=== PATIENT | male | born 1960 | race Caucasian/White ===

== ENCOUNTER 2017-02-22 12:31 | Day surgery (SDC) | payer BC ==
[2017-02-22] MEDS ORDERED: MIDAZOLAM HCL 2MG/2ML VIAL IV ONE (14:00)
[2017-02-22] MEDS ORDERED: PROPOFOL 10 MG/ML VIAL IV ONE (14:00)
[2017-02-22] MEDS ORDERED: LIDOCAINE 2% MDV (20MG/ML) 20ML VIAL IV ONE (14:00)
--- NOTE | 2017-02-27 09:49 | Operative Note ---
DATE OF SURGERY: 02/22/2017 OPERATION: COLONOSCOPY with cold forceps polypectomy x2. PREOPERATIVE DIAGNOSIS: Screening, initial, average risk. POSTOPERATIVE DIAGNOSES: 1. A few ascending colon diverticula. 2. Sigmoid colon polyps. ESTIMATED BLOOD LOSS: Minimal. SPECIMENS: Sigmoid colon polyps x2. COMPLICATIONS: None apparent. PREPARATION QUALITY: Good. PROCEDURE: After informed consent was obtained from the patient, he was placed in the left lateral decubitus position in the endoscopy suite, sedated and monitored by the department of anesthesia. Digital rectal exam was unremarkable. A well-lubricated [id number] colonoscope was inserted into the rectum and advanced to the cecum. Preparation quality was good. The cecum was unremarkable. The ascending colon revealed a few diverticula. The ileocecal valve and appendiceal orifice as well were once again inspected and were unremarkable. The remainder of the ascending colon, transverse colon, and descending colon were unremarkable. There were 2 diminutive sigmoid colon polyps each removed with a cold forceps. The remainder of the sigmoid colon was unremarkable. Forward and J-turn views of the rectum and anorectum were unremarkable. The endoscope was straightened, the rectal ampulla deflated, and the endoscope was removed. RECOMMENDATIONS: The patient should follow a high-fiber diet. He will require repeat exam in 5-10 years pending tissue histology. As always, thank you for allowing me to participate in the healthcare of your patients. CC: SOO WADSWORTH MD, FACP [facility]Jess
== END 2017-02-22 14:50 | disposition home or self-care (01) ==
LOC: HOP 12:31
PROVIDERS: ATTEND Internal Medicine Gastroenterology
DX: Z12.11 Encounter for screening for malignant neoplasm of colon (principal); K63.5 Polyp of colon; K57.30 Diverticulosis of large intestine without perforation or abscess without bleeding

== ENCOUNTER 2019-01-27 07:27 | Emergency (ER) | payer BC ==
--- NOTE | 2019-01-27 07:44 | Emergency Department Record ---
History of Present Illness - General Chief Complaint: Fall Injury Stated Complaint: FALL/INJURY LT SIDE Time Seen by Provider: 01/27/19 07:37 Source: Patient Mode of Arrival: Ambulatory Limitations: No limitations - History of Present Illness Initial Comments: The patient is here due to L lower rib pain after rolling out of bed this AM and falling on the floor. Since the fall he has had L lower rib pain. There has been no SOB, ANGEL, Ap, or hematuria. The patient denies any head injury or neck pain. The patient does have an extensive smoking hx but just recently quit. Onset/Timin -: Hour(s) Fall From: Out of bed When Fall Occurred: 4-[address] Fall Occurred: Home Loss of Consciousness: None Prolonged Down Time?: No Symptoms Prior to Fall: None Location: Back - [place] Coma Scale Eye Response: (4) Open spontaneously Motor Response: (6) Obeys commands Verbal Response: (5) Oriented Rachele Total: 15 - Related Data Home Medications Medication Instructions Recorded Confirmed Last Taken Aspirin [Aspir-Low] 81 mg PO DAILY 01/27/19 01/27/19 01/27/19 Allergies Allergy/AdvReac Type Severity Reaction Status Date / Time No Known Drug Allergies Allergy Verified 01/27/19 07:39 Travel Screening - Travel/Exposure Within Last 30 Days Have you traveled within the last 30 days?: No - Travel/Exposure Within Last Year Have you traveled outside the [place] in the last year?: Yes Location Detail:: [place] - Additonal Travel Details Have you been exposed to anyone with a communicable illness?: No - Travel Symptoms Symptom Screening: None Review of Systems Constitutional: Denies: Chills, Fever Eyes: Denies: Eye discharge ENT: Denies: Congestion, Dental pain Respiratory: Denies: Cough, Dyspnea Past Medical History - SOCIAL HISTORY Smoking Status: Former smoker Alcohol Use: None Drug Use: Occasional Drug Use Detail:: Marijuana - RESPIRATORY Hx Respiratory Disorders: No - CARDIOVASCULAR Hx Cardio Disorders: Yes Hx Hypertension: Yes - NEURO Hx Neuro Disorders: No - GI Hx GI Disorders: No - Hx Genitourinary Disorders: No - ENDOCRINE Hx Endocrine Disorders: No - MUSCULOSKELETAL Hx Musculoskeletal Disorders: No - PSYCH Hx Psych Problems: No - HEMATOLOGY/ONCOLOGY Hx Hematology/Oncology Disorders: No Family Medical History Any Significant Family History?: No Physical Exam - General General Appearance: Alert, Oriented x3, Cooperative, No acute distress - Head Head exam: Atraumatic, Normocephalic, Normal inspection - Eye Eye exam: Normal appearance, PERRL - ENT Throat exam: Normal inspection. negative: Tonsillar erythema, Tonsillar exudate - Neck Neck exam: Normal inspection, Full ROM. negative: Tenderness - Respiratory Respiratory exam: Normal lung sounds bilaterally, Chest wall tenderness (There is tenderness to the L lower ribs laterally. There is no bruising, swelling, erythema, or crepitance on exam of the L lower ribs.) - Cardiovascular Cardiovascular Exam: Regular rate, Normal rhythm, Normal heart sounds - GI/Abdominal GI/Abdominal exam: Soft, Normal bowel sounds. negative: Rebound, Rigid, Tenderness (There is no LUQ tenderness.) - Extremities Extremities exam: Normal inspection, Full ROM, Normal capillary refill. negative: Tenderness Image of Full Body: 1 - Area of pain and tenderness. - Neurological Neurological exam: Alert, Normal gait. negative: Abnormal gait, Motor sensory deficit - Psychiatric Psychiatric exam: negative: Anxious Course Vital Signs 01/27/19 07:30 Temperature 98.1 F Pulse Rate 71 Respiratory 18 Rate Blood Pressure 146/83 Pulse Ox 98 - Reevaluation(s) Reevaluation #1: I did review the xrays with the patient and did relay that no rib fx was found. I also did discuss the incidental finding of the RUL mass and LLL nodule. Due to the high risk of malignancy I did discuss the case with Dr. Payne who assured me that he can see the patient this week and have him further evaluated with a CT scan. 01/27/19 08:32 Medical Decision Making - Data Complexity MDM Data: X-Ray Ordered and/or Reviewed - Radiology Data Radiology results: Report reviewed (L ribs: Neg for fx. CXR: 5.6 cm RUL mass with L lower lung nodule. Possible malignancy.) Disposition Disposition: Discharge Clinical Impression: Contusion of rib on left side Qualifiers: Encounter type: initial encounter Qualified Code(s): S20.212A - Contusion of left front wall of thorax, initial encounter Disposition: Home, Self-Care Condition: (2) Stable Instructions: Pulmonary Nodules (ED), Rib Contusion (ED) Additional Instructions: Please take Tylenol or Motrin for pain and please rest when possible with no lifting. Please see your Dr. Payne this week for further evaluation and to have a chest CT ordered. Return to the ER for any worsening symptoms. Forms: Patient Portal Access Time of Disposition: 08:31 Quality - Quality Measures Quality Measures: N/A - Blood Pressure Screening View Details: Yes Does Patient Have Any of the Following: No Blood Pressure Classification: Pre-Hypertensive BP Reading Systolic Measurement: 129 Diastolic Measurement: 80 Screening for High Blood Pressure: < Pre-Hypertensive BP, F/U Documented > [G8950] Pre-Hypertensive Follow-up Interventions: Referral to alternative/primary care provider.
--- NOTE | 2019-01-29 09:03 | RADIOLOGY REPORT ---
EXAM: CHEST, TWO VIEWS HISTORY: TRAUMA, LEFT RIB PAIN AFTER ROLLING OUT OF BED THIS MORNING AND LANDED ON BACK. TECHNIQUE: PA and lateral views of the chest were obtained. Comparison: None. Encounter: Initial. FINDINGS: The heart size is normal. No definite acute infiltrate is seen and no pleural effusion or pneumothorax evident, however, there does appear to be a mass like density in the right upper lobe measuring about 5.8 cm in maximum diameter and a nodule in the left lower lobe measuring about 1.6 cm in diameter. There may be a second small nodular overlying the heart as well approximately 1.3 cm. The possibility of metastatic disease, possibly primary malignancy in the right upper lobe is raised. Comparison with prior chest x-ray is suggested and follow-up nonemergent chest CT may be useful. There is a thoracic curve to the right. The lungs do appear hyperinflated suggesting underlying COPD. There is mild relative loss of vertebral height of numerous thoracic vertebra, approximately T6 through T11, presumably chronic and may even be developmental and again comparison with old films would be useful in this regard. IMPRESSION: 1. HYPERINFLATION SUGGESTING COPD. 2. PROBABLE 5.1 CM MASS RIGHT UPPER LOBE AND AT LEAST ONE IF NOT TWO NODULES IN THE LEFT BASE. MALIGNANCY NOT EXCLUDED. COMPARISON WITH PRIOR CHEST X-RAYS AND POSSIBLY FOLLOW-UP NONEMERGENT CHEST CT SUGGESTED. 3. THORACIC CURVE TO THE RIGHT WITH MILD VERTEBRAL BODY HEIGHT LOSS AND NUMEROUS THORACIC VERTEBRA ALL PRESUMABLY CHRONIC AND AGAIN COMPARISON WITH OLD FILMS WOULD BE USEFUL. JOB NUMBER: [id number] MTDD
--- NOTE | 2019-01-29 09:07 | RADIOLOGY REPORT ---
EXAM: LEFT RIBS HISTORY: PATIENT ROLLED OUT OF BED TODAY LANDING ON BACK WITH LEFT RIB PAIN. TECHNIQUE: AP and oblique views of the left ribs were obtained. Comparison: No prior left rib series. Encounter: Initial. FINDINGS: As noted on the chest x-ray today there appears to be a mass like density in the right upper lobe measuring about 5.7 cm. There is also an approximately 1.6 cm nodule in the left base. Follow-up as described in the chest x-ray report from today suggested for further evaluation of this. No definite left rib fracture identified. No pneumothorax or pleural effusion evident. IMPRESSION: 1. NO DEFINITE LEFT RIB FRACTURE IDENTIFIED. 2. APPARENT PULMONARY MASS RIGHT UPPER LOBE AND AT LEAST ONE NODULE IN THE LEFT BASE. RECOMMEND FOLLOW-UP SUGGESTED IN THE CHEST X-RAY REPORT FROM TODAY. JOB NUMBER: [id number] MTDD
== END 2019-01-27 08:36 | disposition home or self-care (01) ==
LOC: ER 07:27
DX: S20.211A Contusion of right front wall of thorax, initial encounter (principal); W17.89XA Other fall from one level to another, initial encounter; Y92.003 Bedroom of unspecified non-institutional (private) residence as the place of occurrence of the external cause; R91.1 Solitary pulmonary nodule; R91.8 Other nonspecific abnormal finding of lung field
CPT/HCPCS: 71046; 99283; 99284

== ENCOUNTER 2019-06-19 11:27 | Observation (INO) | payer BC ==
[2019-06-19] MEDS ORDERED: 0.9 % SODIUM CHLORIDE 1,000 ML BAG IV ONE ×2 (11:52→13:39)
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
[2019-06-19 12:14] LABS: HEMATOCRIT 37.7 % (42.0-52.0); HEMOGLOBIN 12.3 gm/dl (14.0-18.0); MEAN CELL VOLUME 95.7 fl (81-97); MEAN CORPUSCULAR HEMOGLOBIN 31.2 pg (27-33); MEAN CORPUSCULAR HGB CONC 32.6 g/dl (32-36); MEAN PLATELET VOLUME 9.8 fl (7.4-10.4); PLATELET COUNT 443 K/uL (130-400); RED BLOOD COUNT 3.94 M/uL (4.40-5.70); RED CELL DISTRIBUTION WIDTH 13.9 % (11.5-14.5); WHITE BLOOD COUNT W/O DIFF 14.2 K/uL (4.2-12.2)
[2019-06-19 12:27] LABS: PARTIAL THROMBOPLASTIN TIME 23.6 SECONDS (24.5-39.1); PROTHROMBIN TIME (PATIENT) 9.9 SECONDS (9.5-12.1)
[2019-06-19 12:42] LABS: BLOOD UREA NITROGEN 17 mg/dL (6-20); CREATININE 0.8 mg/dL (0.7-1.2); EST GLOMERULAR FILTRATION RATE > 60 mL/min
[2019-06-19 12:43] LABS: TOTAL PROTEIN 6.5 g/dL (6.6-8.7)
[2019-06-19 12:45] LABS: GLUCOSE,RANDOM 182 mg/dL (74-109)
[2019-06-19 12:48] LABS: ALB/GLOB RATIO 1.2 (1.1-1.8); ALBUMIN 3.6 g/dL (4.0-5.0); ALKALINE PHOSPHATASE 107 U/L (40-129); ALT/SGPT 12 U/L (<41); AST/SGOT 17 U/L (10.0-50.0)
--- NOTE | 2019-06-19 13:26 | RADIOLOGY REPORT ---
EXAMINATION: Two View Chest Radiographs EXAM DATE: 06/19/2019 12:57 PM TECHNIQUE: Frontal and lateral views INDICATION: Lung CA COMPARISON: 01/27/2019 ENCOUNTER: Not applicable FINDINGS: The cardiac and mediastinal silhouettes are within normal limits. There is a stable appearing pulmona ry nodule projecting over the left lung base. The pulmonary mass which was previously identified proj ecting over the right upper lobe is not identified on the current exam. There appears to been resecti on of a large portion of the right fifth rib. There is tenting and elevation of the right hemidiaphra gm which may be postprocedural. There is blunting of the right costophrenic angle as well as a cresce ntic density superior to the right lung apex. IMPRESSION: 1. Tenting and elevation of the right hemidiaphragm may be due to scarring following partial pneumone ctomy. 2. Blunting of the right costophrenic angle and crescentic density at the right lung apex may represe nt a pleural effusion. 3. Stable left basilar pulmonary nodule. Dictated by: Rhett Doherty on 06/19/2019 1:21 PM. .
--- NOTE | 2019-06-19 13:35 | CT SCAN REPORT ---
EXAMINATION: CT Head without IV Contrast EXAM DATE: 06/19/2019 12:57 PM TECHNIQUE: Standard protocol CT images of the head were obtained without intravenous contrast. Moseley l and sagittal reconstructed images were created. INDICATION: Hx lung CA with possible seizure COMPARISON: None HAND DOMINANCE: Unknown. ENCOUNTER: Not applicable FINDINGS: 1. There is no intracranial mass, midline shift, extraaxial fluid collection or hemorrhage. 2. The ventricles, sulci and cisterns are normal. 3. There are no suspicious area of altered attenuation. 4. There is no fracture. 5. Globes and orbits appear unremarkable. Polyp versus mucous retention cyst sphenoid sinus. Mild mu cosal thickening left maxillary sinus. Opacification of some the mastoid air cells bilaterally greate r on the right. Opacification of a portion of the right middle ear. IMPRESSION: 1. No acute intracranial process evident. 2. Opacification of some the mastoid air cells bilaterally greater on the right. Opacification of a portion of the right middle ear. Correlate for signs/symptoms of infection. Cholesteatoma in the rig ht middle ear not excluded. Dictated by: Malcolm So DO on 06/19/2019 1:30 PM. .
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
[2019-06-19] MEDS ORDERED: ACETAMINOPHEN 325 MG TAB PO PRN (15:48)
[2019-06-19] MEDS ORDERED: 0.9 % SODIUM CHLORIDE 1000ML 1,000 ML IV ONE (15:48)
[2019-06-19] MEDS ORDERED: ENOXAPARIN 40 MG/0.4 ML SYR SC SCH (16:30)
[2019-06-19] MEDS ORDERED: IBUPROFEN 400 MG TABLET PO PRN (19:07)
[2019-06-19] MEDS ORDERED: GABAPENTIN 300 MG CAPSULE PO SCH (22:00)
[2019-06-20 06:38] LABS: ABSOLUTE NEUTROPHIL COUNT 7.43; BASO % 0.5 % (0-6); EOS % 0.2 % (0-6); HEMATOCRIT 34.7 % (42.0-52.0); HEMOGLOBIN 11.3 gm/dl (14.0-18.0); LYMPH % 14.3 % (16-45); MEAN CELL VOLUME 96.1 fl (81-97); MEAN CORPUSCULAR HEMOGLOBIN 31.3 pg (27-33); MEAN CORPUSCULAR HGB CONC 32.6 g/dl (32-36); MEAN PLATELET VOLUME 9.3 fl (7.4-10.4); PLATELET COUNT 493 K/uL (130-400); RED BLOOD COUNT 3.61 M/uL (4.40-5.70); RED CELL DISTRIBUTION WIDTH 14.2 % (11.5-14.5); WHITE BLOOD COUNT W/O DIFF 10.3 K/uL (4.2-12.2)
[2019-06-20 06:49] LABS: BLOOD UREA NITROGEN 15 mg/dL (6-20); CREATININE 0.8 mg/dL (0.7-1.2); EST GLOMERULAR FILTRATION RATE > 60 mL/min; GLUCOSE,RANDOM 107 mg/dL (74-109)
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
[2019-06-20] MEDS ORDERED: TIOTROPIUM BROMIDE INH SCH (10:00)
== END 2019-06-20 10:20 | disposition home or self-care (01) ==
LOC: ER 11:27 → MEDSURG 15:37
PROVIDERS: ADMIT Internal Medicine; ATTEND Internal Medicine
DX: R55 Syncope and collapse (principal); I95.9 Hypotension, unspecified; D72.829 Elevated white blood cell count, unspecified; J44.9 Chronic obstructive pulmonary disease, unspecified; I10 Essential (primary) hypertension; Z90.2 Acquired absence of lung [part of]; Z92.21 Personal history of antineoplastic chemotherapy; Z85.118 Personal history of other malignant neoplasm of bronchus and lung
CPT/HCPCS: 99285 ×2; 96360; 96361; 85025; 85730; 85610; 80048; 80053; 84484 ×2; 85027; 71046; 70450; 93005 ×2; 93010 ×2; G0378 ×2; 99217; 99220; J1650; J7030